=== PATIENT | male | born 1980 | race Two or more races ===

== ENCOUNTER 2016-06-04 19:41 | Emergency (ER) | payer BC ==
[~2016-06-04] VITALS: Ht 160 cm; Wt 63.5 kg
[2016-06-04 20:17] VITALS: BP 125/76
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
[2016-06-04] MEDS ORDERED: CYCLOBENZAPRINE 10 MG TABLET. PO ONE (21:45)
[2016-06-04] MEDS ORDERED: NAPROXEN 250 MG TABLET PO ONE (21:45)
[2016-06-04] MEDS ORDERED: DIPHTH,PERTUSS(ACELL),TET TOX 0.5 ML DISP.SYRIN. VAX IM ONE (21:45)
[2016-06-04] MEDS ORDERED: NAPR250T2 PO (22:29)
[2016-06-04] MEDS ORDERED: CYCL10TA2 PO (22:29)
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
== END 2016-06-04 22:32 | disposition home or self-care (01) ==
LOC: ER 19:41
DX: S46.912A Strain of unspecified muscle, fascia and tendon at shoulder and upper arm level, left arm, initial encounter (principal); S39.012A Strain of muscle, fascia and tendon of lower back, initial encounter; S86.912A Strain of unspecified muscle(s) and tendon(s) at lower leg level, left leg, initial encounter; S40.022A Contusion of left upper arm, initial encounter; S80.812A Abrasion, left lower leg, initial encounter; V49.50XA Passenger injured in collision with unspecified motor vehicles in traffic accident, initial encounter; Y93.89 Activity, other specified; Y92.410 Unspecified street and highway as the place of occurrence of the external cause; Y99.8 Other external cause status
CPT/HCPCS: 72100; 73030; 73060; 73590; 90471; 90715; 99284-25